=== PATIENT | male | born 1980 | race Caucasian/White ===

== ENCOUNTER 2016-11-03 22:11 | Emergency (ER) | payer MEDICAID ==
[2016-11-04] MEDS ORDERED: ALBUTEROL HFA INH ONE (00:14)
== END 2016-11-04 00:44 | disposition home or self-care (01) ==
LOC: ER 22:11
CPT/HCPCS: 71020; 94640

== ENCOUNTER 2016-11-12 22:01 | Emergency (ER) | payer MEDICAID ==
[2016-11-12] MEDS ORDERED: ONDANSETRON 4 MG VIAL ONE (23:46)
[2016-11-12] MEDS ORDERED: KETOROLAC 30 MG/ML VIAL ONE (23:47)
[2016-11-12] MEDS ORDERED: SODIUM CHLORIDE 0.9% 1,000 ML ONE (23:47)
[2016-11-13] MEDS ORDERED: DILAUDID 1 MG/ML AMP ONE (00:25)
== END 2016-11-13 01:32 | disposition home or self-care (01) ==
LOC: ER 22:01
DX: K86.1 Other chronic pancreatitis (principal); R10.13 Epigastric pain; R10.12 Left upper quadrant pain; Z79.899 Other long term (current) drug therapy; F17.210 Nicotine dependence, cigarettes, uncomplicated
CPT/HCPCS: 36415; 80053; 81003; 82947; 83036; 83690; 85025; 96361; 96374; 96375

== ENCOUNTER 2016-11-22 15:52 | Emergency (ER) | payer MEDICAID ==
[2016-11-22] MEDS ORDERED: ONDANSETRON 4 MG VIAL ONE (20:47)
[2016-11-22] MEDS ORDERED: MORPHINE 4 MG/ML SYR ONE (20:48)
[2016-11-22] MEDS ORDERED: SODIUM CHLORIDE 0.9% 1,000 ML ONE (20:48)
[2016-11-22] MEDS ORDERED: DILAUDID 1 MG/ML AMP ONE (21:30)
== END 2016-11-22 22:04 | disposition home or self-care (01) ==
LOC: ER 15:52
DX: K86.1 Other chronic pancreatitis (principal); Z79.899 Other long term (current) drug therapy
CPT/HCPCS: 36415; 80053; 81003; 83690; 85025; 96361; 96374; 96375

== ENCOUNTER 2016-12-02 13:01 | Emergency (ER) | payer MEDICAID ==
[2016-12-02] MEDS ORDERED: DILAUDID 1 MG/ML AMP ONE ×2 (14:59→16:35)
[2016-12-02] MEDS ORDERED: ONDANSETRON 4 MG VIAL ONE (14:59)
[2016-12-02] MEDS ORDERED: SODIUM CHLORIDE 0.9% 1,000 ML ONE (14:59)
== END 2016-12-02 17:10 | disposition home or self-care (01) ==
LOC: ER 13:01
DX: R10.11 Right upper quadrant pain (principal); R10.13 Epigastric pain; Z79.899 Other long term (current) drug therapy; F17.210 Nicotine dependence, cigarettes, uncomplicated
CPT/HCPCS: 36415; 76705; 80053; 80307; 81003; 83690; 85025; 96361; 96374; 96375; 96376

== ENCOUNTER 2016-12-08 15:22 | Emergency (ER) | payer MEDICAID ==
[2016-12-08] MEDS ORDERED: KETOROLAC 30 MG/ML VIAL ONE (20:00)
== END 2016-12-08 20:10 | disposition home or self-care (01) ==
LOC: ER 15:22
DX: R10.13 Epigastric pain (principal); Z79.899 Other long term (current) drug therapy; F17.210 Nicotine dependence, cigarettes, uncomplicated
CPT/HCPCS: 36415; 80053; 81001; 83690; 85025

== ENCOUNTER → 2016-12-08 | Emergency (ER) | payer MEDICAID | LOC: ER 13:52 | DX: Z53.21 Procedure and treatment not carried out due to patient leaving prior to being seen by health care provider (principal) | CPT/HCPCS: 99281 ==